=== PATIENT | female | born 1985 | race Caucasian/White ===

== ENCOUNTER 2024-10-16 12:03 | Outpatient (CLI) | payer BC, SELFPAY ==
[2024-10-16 09:37] LABS: Hemoglobin A1C 5.4 % (<5.7)
[2024-10-16 10:41] LABS: TSH 5.99 uIU/mL (0.36-3.74); Vitamin D 25 Total 31.4 ng/mL (30-100)
== END 2024-10-16 12:04 | disposition home or self-care (01) ==
LOC: LBO 12:09
PROVIDERS: PCP Nurse Practitioner Family; Visit Provider Nurse Practitioner Family
DX: Z00.00 Encounter for general adult medical examination without abnormal findings (principal); E03.9 Hypothyroidism, unspecified
CPT/HCPCS: 36415; 82306; 83036; 84443

== ENCOUNTER 2025-04-25 17:23 | Outpatient (REF) | payer BC, SELFPAY ==
[2025-04-25 19:57] LABS: Calculated LDL 168 mg/dL (<100); Cholesterol 236 mg/dL (<200); HDL Cholesterol 50 mg/dL (>or=50); TSH 0.49 uIU/mL (0.36-3.74); Triglyceride 90 mg/dL (<150)
== END 2025-04-25 17:24 | disposition home or self-care (01) ==
LOC: NCHCN 17:23
PROVIDERS: PCP Nurse Practitioner Family; Visit Provider Nurse Practitioner Family
DX: Z00.00 Encounter for general adult medical examination without abnormal findings (principal); E03.9 Hypothyroidism, unspecified
CPT/HCPCS: 80061; 84443